=== PATIENT | female | born 1960 | race Caucasian/White ===

== ENCOUNTER 2019-12-16 07:17 | Emergency (ER) | payer BC, MEDICAID ==
[2019-12-16] MEDS ORDERED: Sodium Chloride 0.9% 10 ML Syringe FLUSH PRN (07:39)
--- NOTE | 2019-12-16 07:46 | EDM.PDOC ---
ED HPI GENERAL MEDICAL PROBLEM - General Stated Complaint: CHEST PAIN Time Seen by Provider: 12/16/19 07:32 Source of Information: Reports: Patient - History of Present Illness INITIAL COMMENTS - FREE TEXT/NARRATIVE: Drea is a 59 y/o female who comes to the ER with chest pain. She reports that the pain was really strong baout 0530 when she was waking up. It was in the mid-chest region and radiated down her left arm. She did get a bit nauseated and short of breath. She does have a history of 2 stents and a pacer that were placed in 2013 following an MS. She has not seen a supervisor [employer] for 5 years now to follow up. She does report she has been having progressively more bouts of chest pain that has been bothering her over the last 3 months. She has been having almost daily bouts of chest pain, does not seem to be aggravated by exercise. This AM she rates the pain 8/10, but now in the ER it is 0/10. She did take 2 baby ASA at home. Mid-Sternal Chest Pain Score (Numeric/FACES): 8 - Related Data Allergies Allergy/AdvReac Type Severity Reaction Status Date / Time bacitracin [From Polysporin] Allergy Cannot Verified 02/16/19 12:02 Remember lanolin Allergy Hives Verified 12/16/19 08:19 morphine Allergy Hives Verified 12/16/19 08:19 Penicillins Allergy Hives Verified 02/16/19 12:02 polymyxin B [From Polysporin] Allergy Cannot Verified 02/16/19 12:02 Remember Sulfa (Sulfonamide Allergy Hives Verified 02/16/19 12:02 Antibiotics) lisinopril AdvReac Cough Verified 12/16/19 08:19 topical antibiotic ointments Allergy Cannot Uncoded 02/16/19 12:02 Remember Home Meds: Home Meds Aspirin [Ecotrin EC] 81 mg PO DAILY 02/15/19 [History] Clopidogrel [Plavix] 75 mg PO DAILY 02/15/19 [History] Isosorbide Mononitrate [Isosorbide Mononitrate ER] 30 mg PO DAILY 02/15/19 [History] Metoprolol Succinate [Toprol XL] 75 mg PO DAILY 02/15/19 [History] Omeprazole 20 mg PO ACBREAKFAST 02/15/19 [History] atorvaSTATin [Lipitor] 80 mg PO DAILY 02/15/19 [History] metFORMIN [Glucophage XR] 1,000 mg PO WITHDINNER 02/15/19 [History] Furosemide [Lasix] 20 mg PO DAILY 12/16/19 [History] Insulin Glargine,Hum.Rec.Anlog [Lantus Solostar] 44 unit SQ BEDTIME 12/16/19 [History] Losartan [Cozaar] 25 mg PO DAILY 12/16/19 [History] Nitroglycerin 0.4 mg SL Q5M PRN 12/16/19 [History] Past Medical History Cardiovascular History: Reports: MS, Pacemaker, PTCA Genitourinary History: Reports: UTI, Recurrent Endocrine/Metabolic History: Reports: Diabetes, Type II - Past Surgical History Respiratory Surgical History: Reports: None Dermatological Surgical History: Reports: None Social & Family History - Family History Family Medical History: Unobtainable - Caffeine Use Caffeine Use: Reports: Coffee, Soda, Tea - Living Situation & Occupation Living situation: Reports: , with Family Occupation: Other Review of Systems - Review of Systems Review Of Systems: See Below Constitutional: Reports: No Symptoms Eyes: Reports: No Symptoms Ears: Reports: No Symptoms Nose: Reports: No Symptoms Mouth/Throat: Reports: No Symptoms Respiratory: Reports: Shortness of Breath (with chest pain) Cardiovascular: Reports: Chest Pain GI/Abdominal: Reports: Nausea (with chest pain) Genitourinary: Reports: No Symptoms Musculoskeletal: Reports: No Symptoms Skin: Reports: No Symptoms Neurological: Reports: No Symptoms Psychiatric: Reports: No Symptoms ED EXAM, GENERAL - Physical Exam Exam: See Below Exam Limited By: No Limitations General Appearance: Alert, WD/WN, No Apparent Distress (Adult female.) Ears: Normal Canal, Hearing Grossly Normal Throat/Mouth: Normal Lips, Normal Voice Head: Atraumatic, Normocephalic Neck: Normal Inspection, Supple Respiratory/Chest: No Respiratory Distress, Lungs Clear, Normal Breath Sounds, Chest Non-Tender Cardiovascular: Normal Peripheral Pulses, Regular Rate, Rhythm, No Murmur GI/Abdominal: Normal Bowel Sounds, Soft, Other (Obese) (Female) Exam: Deferred Rectal (Female) Exam: Deferred Back Exam: Normal Inspection Extremities: Normal Inspection, No Pedal Edema, Normal Capillary Refill Neurological: Alert, Oriented, CN II-XII Intact, Normal Cognition, Normal Gait Psychiatric: Normal Affect, Normal Mood Skin Exam: Warm, Dry, Intact, Normal Color Lymphatic: No Adenopathy EKG INTERPRETATION EKG Date: 12/16/19 Time: 07:15 Rhythm: NSR Rate (Beats/Min): 61 [place]: Normal P-Wave: Present QRS: Normal ST-T: Depressed QT: Normal Comparison: No Change EKG Interpretation Comments: Compared to EKG 07/24/2013 Course - Vital Signs Text/Narrative:: The patient was seen by the DIRECTOR [employer]IOSTATIST[employer]. Labs EKG, and CXR were ordered. She was given ASA 81mg po x 2 since she took 2 at home prior to coming to the ER. 0855 Patient had a small bit of pain when up to the bathroom, but then it went away. Labs reviewed. EKG repeated and unchanged. 09 [facility] contacted and case discussed with Dr Diehl who accepted the patient for transfer. Patient will need further cardiology testing evaluation. [facility] to transfer patient to [facility]. Patient remained stable in the ER until she left with EMS. Last Recorded V/S: Last Vital Signs Temp 36.0 C L 12/16/19 07:20 Pulse 60 12/16/19 08:49 Resp 16 12/16/19 08:49 BP 159/78 H 12/16/19 08:49 Pulse Ox 98 12/16/19 08:49 - Orders/Labs/Meds Orders: Active Orders 24 hr Category Date Time Status EKG 12 Lead [EKG Documentation Completion] [RC] STAT Care 12/16/19 08:49 Active EKG Documentation Completion [RC] STAT Care 12/16/19 07:41 Active Chest 1V Frontal [CR] Stat Exams 12/16/19 07:33 Taken Aspirin Med 12/16/19 08:00 Active 81 mg PO WITHBREAKFAST Sodium Chloride 0.9% [Saline Flush] Med 12/16/19 07:39 Active 10 ml FLUSH ASDIRECTED PRN Saline Lock Insert [OM.PC] Stat Oth 12/16/19 07:33 Ordered Medication Orders Aspirin (Aspirin) 81 mg PO WITHBREAKFAST NGOC Last Admin: 12/16/19 08:02 Dose: 81 mg Documented by: Admin: 12/16/19 08:02 Dose: 81 mg Documented by: CECY Sodium Chloride (Saline Flush) 10 ml FLUSH ASDIRECTED PRN PRN Reason: Keep Vein Open Labs: Laboratory Tests 12/16/19 12/16/19 12/16/19 Range/Units 07:50 07:50 07:50 WBC 6.2 (4.0-10.0) x10^3/uL RBC 4.62 (4.00-5.50) x10^6/uL Hgb 14.1 D (12.0-16.0) g/dL Hct 40.7 (33.0-47.0) % MCV 88.1 (78.0-93.0) fL MCH 30.5 (26.0-32.0) pg MCHC 34.6 (32.0-36.0) g/dL RDW Coeff of Phil 13.6 (10.0-15.0) % Plt Count 194 (130-400) x10^3/uL Add Manual Diff Yes Neutrophils % (Manual) 62 (50-80) % Lymphocytes % (Manual) 18 L (25-50) % Reactive Lymphs % 9 H (0) % Monocytes % (Manual) 10 (2-11) % Eosinophils % (Manual) 1 (0-4) % Platelet Estimate Adequate PT (9.5-12.3) SEC INR (2.0-3.5) APTT 25.2 L (25.6-32.8) SEC D-Dimer, Quantitative (<=0.58) mg/LFEU Sodium 142 (136-145) mmol/L Potassium 4.0 (3.5-5.1) mmol/L Chloride 106 (98-107) mmol/L Carbon Dioxide 26 (21-32) mmol/L Anion Gap 14.0 (10-20) mmol/L BUN 14 (7-18) mg/dL Creatinine 0.9 (0.55-1.02) mg/dL Est Cr Clr Drug Dosing 68.73 mL/min Estimated GFR (MDRD) > 60 Glucose 132 H (74-106) mg/dL Calcium 8.5 (8.5-10.1) mg/dL Corrected Calcium 8.82 (8.5-10.1) mg/dL Magnesium 1.6 L (1.8-2.4) mg/dL Total Bilirubin 0.8 (0.2-1.0) mg/dL AST 28 (15-37) U/L ALT 39 (14-59) U/L Alkaline Phosphatase 95 (46-116) U/L Troponin I 0.029 (<=0.056) ng/mL Total Protein 7.0 (6.4-8.2) g/dL Albumin 3.6 (3.4-5.0) g/dL Globulin 3.4 Albumin/Globulin Ratio 1.06 08/25/20 Range/Units 07:50 WBC (4.0-10.0) x10^3/uL RBC (4.00-5.50) x10^6/uL Hgb (12.0-16.0) g/dL Hct (33.0-47.0) % MCV (78.0-93.0) fL MCH (26.0-32.0) pg MCHC (32.0-36.0) g/dL RDW Coeff of Phil (10.0-15.0) % Plt Count (130-400) x10^3/uL Add Manual Diff Neutrophils % (Manual) (50-80) % Lymphocytes % (Manual) (25-50) % Reactive Lymphs % (0) % Monocytes % (Manual) (2-11) % Eosinophils % (Manual) (0-4) % Platelet Estimate PT 9.9 (9.5-12.3) SEC INR 0.9 L (2.0-3.5) APTT (25.6-32.8) SEC D-Dimer, Quantitative 0.34 (<=0.58) mg/LFEU Sodium (136-145) mmol/L Potassium (3.5-5.1) mmol/L Chloride (98-107) mmol/L Carbon Dioxide (21-32) mmol/L Anion Gap (10-20) mmol/L BUN (7-18) mg/dL Creatinine (0.55-1.02) mg/dL Est Cr Clr Drug Dosing mL/min Estimated GFR (MDRD) Glucose (74-106) mg/dL Calcium (8.5-10.1) mg/dL Corrected Calcium (8.5-10.1) mg/dL Magnesium (1.8-2.4) mg/dL Total Bilirubin (0.2-1.0) mg/dL AST (15-37) U/L ALT (14-59) U/L Alkaline Phosphatase (46-116) U/L Troponin I (<=0.056) ng/mL Total Protein (6.4-8.2) g/dL Albumin (3.4-5.0) g/dL Globulin Albumin/Globulin Ratio Meds: Medications Generic Name Dose Route Start Last Admin Trade Name Freq PRN Reason Stop Dose Admin Aspirin 81 mg 12/16/19 08:00 12/16/19 08:02 Aspirin PO 81 mg WITHBREAKFAST NGOC Administration Sodium Chloride 10 ml 12/16/19 07:39 Saline Flush FLUSH ASDIRECTED PRN Keep Vein Open Discontinued Medications Generic Name Dose Route Start Last Admin Trade Name Freq PRN Reason Stop Dose Admin Aspirin 162 mg 12/16/19 07:49 12/16/19 08:15 Halfprin PO 12/16/19 07:50 Not Given ONETIME ONE - Radiology Interpretation Free Text/Narrative:: XR Chest=no acute findings Departure - Departure Time of Disposition: 09:05 Disposition: DC/Tfer to Hospice - Home 50 Condition: Good Clinical Impression: Chest pain, Unstable angina, Diabetes mellitus - Discharge Information *PRESCRIPTION DRUG MONITORING PROGRAM REVIEWED*: Not Applicable *COPY OF PRESCRIPTION DRUG MONITORING REPORT IN PATIENT LUIS MANUEL: Not Applicable Referrals: Tish Dye PA-C [Primary Care Provider] - Forms: Interfacility Transfer EMTALA Additional Instructions: -Transfer to [facility] via [facility] Sepsis Event Note (ED) - Focused Exam Vital Signs: Vital Signs Temp Pulse Resp BP Pulse Ox 12/16/19 08:49 60 16 159/78 H 98 12/16/19 07:50 61 16 178/91 H 97 12/16/19 07:20 36.0 C L 60 16 199/101 H 100 - My Orders Last 24 Hours: My Active Orders 12/16/19 07:33 Chest 1V Frontal [CR] Stat Saline Lock Insert [OM.PC] Stat 12/16/19 07:39 Sodium Chloride 0.9% [Saline Flush] 10 ml FLUSH ASDIRECTED PRN 12/16/19 07:41 EKG Documentation Completion [RC] STAT 12/16/19 08:00 Aspirin 81 mg PO WITHBREAKFAST 12/16/19 08:49 EKG 12 Lead [EKG Documentation Completion] [RC] STAT - Assessment/Plan Last 24 Hours: My Active Orders 12/16/19 07:33 Chest 1V Frontal [CR] Stat Saline Lock Insert [OM.PC] Stat 12/16/19 07:39 Sodium Chloride 0.9% [Saline Flush] 10 ml FLUSH ASDIRECTED PRN 12/16/19 07:41 EKG Documentation Completion [RC] STAT 12/16/19 08:00 Aspirin 81 mg PO WITHBREAKFAST 12/16/19 08:49 EKG 12 Lead [EKG Documentation Completion] [RC] STAT
[2019-12-16] MEDS ORDERED: Aspirin 81 MG Tab.EC PO ONE (07:49)
[2019-12-16] MEDS: Aspirin 81 MG Tab.Chew PO SCH (08:02)
[2019-12-16 08:25] LABS: CHLORIDE,CL 106 mmol/L (98-107); SODIUM,NA 142 mmol/L (136-145)
--- NOTE | 2019-12-16 09:40 | CR ---
[id number] RAD/RAD Chest PA or AP 1V EXAM: SINGLE VIEW CHEST. INDICATION: CHEST PAIN COMPARISON: CORRELATION IS MADE WITH JULY 24, 2013 FINDINGS: The lungs are clear The cardiac silhouette is enlarged A pacemaker is seen IMPRESSION: NO PNEUMONIA OR EDEMA Edgard Torrez MD 12/16/19 0938 Thank you for allowing us to participate in the care of your patient.
== END 2019-12-16 09:20 | disposition hospice, home (50) ==
LOC: VM.ED 07:17
DX: I20.0 Unstable angina (principal); E11.9 Type 2 diabetes mellitus without complications; I25.2 Old myocardial infarction; Z88.5 Allergy status to narcotic agent; Z88.0 Allergy status to penicillin; Z88.1 Allergy status to other antibiotic agents; Z88.8 Allergy status to other drugs, medicaments and biological substances; Z88.2 Allergy status to sulfonamides; Z79.82 Long term (current) use of aspirin; Z79.02 Long term (current) use of antithrombotics/antiplatelets; Z79.4 Long term (current) use of insulin; Z79.899 Other long term (current) drug therapy
CPT/HCPCS: 71045; 80053; 83735; 84484; 85025; 85379; 85610; 85730; 93005; 93010; 99284; 99285-25; A9270-GY